=== PATIENT | female | born 1980 | race African-American/Black ===

== ENCOUNTER 2016-08-23 | Emergency (ER) | payer OTHER ==
[~2016-08-23] VITALS: Ht 175.3 cm; Wt 90.7 kg
== END 2016-08-23 01:08 | disposition home or self-care (01) ==
LOC: CED
DX: S80.212A Abrasion, left knee, initial encounter (principal); F41.9 Anxiety disorder, unspecified; F17.200 Nicotine dependence, unspecified, uncomplicated; Z23 Encounter for immunization; W45.8XXA Other foreign body or object entering through skin, initial encounter; Y92.009 Unspecified place in unspecified non-institutional (private) residence as the place of occurrence of the external cause
CPT/HCPCS: 90471; 90715; 99283